=== PATIENT | male | born 1980 | race Caucasian/White ===

== ENCOUNTER 2023-03-28 11:04 | Outpatient (CLI) | payer OTHER, SELFPAY ==
--- NOTE | 2023-03-28 11:12 | XRR_ITS ---
PROCEDURE INFORMATION: Exam: XR Abdomen Exam date and time: 03/28/2023 11:22 AM Age: 42 years old Clinical indication: Bloating; Additional info: Abdominal distension TECHNIQUE: Imaging protocol: Radiologic exam of the abdomen. Views: 2 Views. Upright and supine views. COMPARISON: No relevant prior studies available. FINDINGS: Gastrointestinal tract: Normal. No bowel dilation. Nonspecific bowel gas pattern. Gas within nondilated small bowel loops. Intraperitoneal space: Normal. No free air. Bones/joints: Unremarkable for age. XR/XR abdomen min 2V [id number] IMPRESSION: No acute findings.
== END 2023-03-28 11:05 | disposition home or self-care (01) ==
LOC: RAD 11:08
PROVIDERS: PCP Family Medicine; Visit Provider Family Medicine
DX: R14.0 Abdominal distension (gaseous) (principal)
CPT/HCPCS: 74019